=== PATIENT | female | born 1960 | race African-American/Black ===

== ENCOUNTER 2017-06-16 21:30 | Emergency (ER) | payer OTHER ==
[2017-06-16 22:53] LABS: CALCIUM 8.6 mg/dL (8.5-10.1); CARBON DIOXIDE 23.8 mmol/L (21-32); CHLORIDE SERUM 106 mmol/L (98-107); CREATININE SERUM 0.8 mg/dL (0.6-1.0); GFR1 > 60 mL/min; GLUCOSE SERUM 107 mg/dL (74-106); POTASSIUM SERUM 3.9 mmol/L (3.5-5.1); SODIUM SERUM 140 mmol/L (136-145)
[2017-06-16 22:57] LABS: ALBUMIN 3.2 g/dL (3.4-5.0); ALKALINE PHOSPHATASE 108 U/L (46-116); ALT/SGPT 45 U/L (14-59); AST/SGOT 43 U/L (15-37); BILIRUBIN TOTAL 0.33 mg/dL (0.20-1.00); TOTAL PROTEIN, SERUM 7.3 g/dL (6.4-8.2)
[2017-06-16 23:09] LABS: CK-MB < 0.5 ng/mL (0-3.6); CREATINE KINASE 105 U/L (26-192)
[2017-06-16 23:40] LABS: BASOPHIL % 0.9 % (0-2); PLATELET COUNT 334 x10^3mcL (130-400)
[2017-06-16 23:41] LABS: RED CELL DISTRIBUTION WIDTH 15.3 % (11.5-14.5)
[2017-06-17 00:13] VITALS: BP 147/95
== END 2017-06-17 00:14 | disposition home or self-care (01) ==
LOC: ED 21:30
PROVIDERS: Emergency Medicine
DX: F41.9 Anxiety disorder, unspecified (principal); Z85.3 Personal history of malignant neoplasm of breast
CPT/HCPCS: 36415